=== PATIENT | male | born 1965 | race Caucasian/White ===

== ENCOUNTER → 2019-06-14 | Outpatient (CLI) | payer MEDICAID ==
[2019-06-14 08:17] LABS: HCT 45.9 % (39.0-53.0); HGB 14.7 gm/dL (13.0-17.5); MCH 30.3 pg (25.0-35.0); MCHC 32.1 g/dL (31.0-37.0); MCV 94.5 fL (80.0-100.0); Mean Platelet Volume 7.4; Platelet Count 282 k/uL (150-450); RBC 4.86 m/uL (4.30-5.90); RDW 13.1 % (11.5-15.5); WBC 5.7 k/uL (3.8-10.6)
[2019-06-14 14:24] LABS: Hemoglobin A1C 5.8 % (4.0-6.0)
[2019-06-14 16:00] LABS: African American GFR (CKD) 125.8 (60.0-200.0); Albumin 4.8 g/dL (3.80-4.90); Albumin/Globulin Ratio 2.29 (1.60-3.17); Anion Gap 7.9 mmol/L (4.00-12.00); BUN/Creat Ratio 28.57 Ratio (12.00-20.00); Calcium 9.9 mg/dL (8.7-10.3); Carbon Dioxide 28.1 mmol/L (21.6-31.8); Chol/HDL Ratio 2.44; Globulin 2.1 g/dL (1.6-3.3); LDL Cholesterol,Calculated 98.6 mg/dL (0.0-131.0); Non-African American GFR(CKD) 108.5 (60.0-200.0); Potassium 4.8 mmol/L (3.5-5.5); Total Bilirubin 1.2 mg/dL (0.2-1.2); Total Protein 6.9 g/dL (6.2-8.2); VLDL Calculation 19.4 mg/dL (5.00-40.00)
== END | disposition home or self-care (01) ==
LOC: LABWHC1 07:34
PROVIDERS: ATTEND Orthopaedic Surgery
DX: R53.83 Other fatigue (principal)
CPT/HCPCS: 36415; 80053; 80061; 82306; 83036; 84153; 84443; 85027

== ENCOUNTER → 2023-12-22 | Outpatient (CLI) | payer MEDICAID ==
--- NOTE | 2023-12-22 18:11 | MR ---
EXAMINATION TYPE: MR lumbar spine wo con DATE OF EXAM: 12/22/2023 COMPARISON: None HISTORY: 58-year-old male M54.50, Lower back pain, RLE radiculopathy, recent trauma. Hx surgery 2009 , TECHNIQUE: Multiplanar, multisequence images of the lumbar spine were acquired without IV contrast. FINDINGS: Vertebral body heights are preserved. Mildly heterogeneous marrow signal suggesting red marrow hyperplasia. No suspicious bone marrow repla cement. Conus medullaris is normal. Moderate to severe hypertrophic facet arthropathy throughout the mid and lower lumbar spine. There is straightening of the normal lumbar lordosis. Trace grade 1 retrolisthesis at both L4-L5 and L5-S1. There is moderate multilevel degenerative disc disease with desiccation, narrowing, and bulging discs , greatest in the lower lumbar spine. There is associated emphysematous Modic type I endplate change L4-L5 and L5-S1. Along with ligamentum flavum thickening at L3-L4, there is a large diffuse disc bulge contribute to s evere focal spinal canal stenosis. There is redundancy of the cauda equina nerve roots above this lev el due to the severe degree of stenosis. Disc bulges at both L1-L2 and L2-L3 contributes to mild spinal canal stenoses at these levels. On the right, changes result in severe neuroforaminal stenosis at L5-S1. Moderate L4-L5, and mild to moderate at L3-L4. On the left, changes result in severe neuroforaminal stenosis at L4-L5, moderate to severe at L5-S1, moderate at L3-L4. Benign 1.7 cm cortical cyst medial left kidney. Possible underlying left adrenal nodule measuring at least 1.2 cm, incompletely imaged. IMPRESSION: 1. Moderate to severe hypertrophic facet arthropathy mid to lower lumbar spine with superimposed mode rate degenerative disc disease. Reactive Modic type I endplate change at both L4-L5 and L5-S1. 2. Trace degenerative grade 1 retrolistheses L4-L5 and L5-S1. Straightening of the normal lumbar lord osis also noted. 3. At L3-L4, combination of diffuse disc bulge and ligamentum flavum thickening causes a severe focal spinal canal stenosis. Secondary redundancy of the cauda equina nerve roots above this level due to the degree of severe stenosis. 4. Mild narrowing of the spinal canal at L1-L2 and L2-L3. 5. Variable neuroforaminal stenoses as outlined above, severe on the right L5-S1 and severe on the le ft at L4-L5. Moderate to severe on the left at L5-S1. 6. Partially visualized possible left adrenal nodule measuring at least 1.2 cm. Consider adrenal mass protocol CT to further evaluate. Statistically representing an adrenal adenoma.
== END | disposition home or self-care (01) ==
LOC: RADMRIMAIN 12:58
PROVIDERS: ATTEND Orthopaedic Surgery
DX: M54.50 Low back pain, unspecified
CPT/HCPCS: 72148

== ENCOUNTER 2024-04-29 05:57 | Day surgery (SDC) | payer MEDICAID ==
[~2024-04-29 05:57] MED LIST: LACTATED RINGERS 1,000 ML IV SCH; LIDOCAINE 1% (10MG/ML) FOR IV START INTRADERMA PRN
[2024-04-29 06:18] VITALS: TEMP 97.2
[2024-04-29] MEDS: SODIUM CHLORIDE 0.9% 500 ML 500 ML IV ONE (06:22)
[2024-04-29] MEDS: MIDAZOLAM 2 MG/2 ML VIAL IV ONE (06:47)
[2024-04-29] MEDS ORDERED: PROPOFOL 10 MG/ML 20 ML VIAL IV ONE (07:10)
[2024-04-29] MEDS ORDERED: LIDOCAINE 1% INJ 10MG/ML (20 ML MDV) ONE (07:10)
[2024-04-29] MEDS: BENZOCAINE SPRAY 1 EACH MM ONE (07:20)
--- NOTE | 2024-04-29 07:38 | P.PCN ---
Date of Procedure: 04/29/24 Description of Procedure: Indication: Atrial fibrillation Procedure Description: After explaining the procedure to the patient, it's risk and complications, blood pressure, heart rate and O2 saturation were monitored. The throat was sprayed with Cetacaine. Patient received sedation per anesthesia department . The probe was introduced into the esophagus without difficulty. Images were obtained. Following that, the probe was removed. There was no immediate complication. Findings: Left atrial size is mildly dilated, left atrial appendage is normal. Left ventricular size and systolic function are normal. The aortic valve, mitral valve and tricuspid valve are normal. Descending thoracic aorta is normal. Contrast bubble study revealed no shunting across the interatrial septum. Doppler: Pulse wave and color Doppler were obtained, and revealed moderate mitral with mild tricuspid regurgitation and trace pulmonic regurgitation. There was no shunting across the interatrial septum. Conclusion: 1. Dilated left atrium with normal appearance of the left atrial appendage 2. Normal ventricle size and systolic function 3. Moderate mitral with mild tricuspid regurgitation 4. No shunting across the interatrial septum 5. Normal appearance of the descending thoracic aorta Cardioversion: After performing WANDA and obtaining sedated state synchronized biphasic cardioversion using 150 J was performed with orthodoxy of sinus mechanism, there was no immediate complication.
[2024-04-29] MEDS ORDERED: SODIUM CHLORIDE 0.9% 1,000 ML IV SCH (07:45)
[2024-04-29 08:16] VITALS: RESP 16
[2024-04-29 08:37] VITALS: BP 126/84; PULSE 74
[2024-04-29] MEDS ORDERED: RIVAROXABAN 10 MG TAB PO SCH (09:00)
[2024-04-29] MEDS ORDERED: METOPROLOL SUCCINATE (ER) 25 MG TAB.ER.24H PO SCH (21:00)
[2024-04-29] MEDS ORDERED: OLMESARTAN 20 MG PO SCH (21:00)
== END 2024-04-29 08:42 | disposition home or self-care (01) ==
LOC: OR 05:57
PROVIDERS: ATTEND Internal Medicine Interventional Cardiology
DX: I48.11 Longstanding persistent atrial fibrillation (principal); I36.1 Nonrheumatic tricuspid (valve) insufficiency; M19.90 Unspecified osteoarthritis, unspecified site; I10 Essential (primary) hypertension; G47.33 Obstructive sleep apnea (adult) (pediatric); Z79.01 Long term (current) use of anticoagulants; Z87.891 Personal history of nicotine dependence; Z79.899 Other long term (current) drug therapy
CPT/HCPCS: 93312; 93320; 93325; 92960; J2250; J2003; J2704

== ENCOUNTER → 2024-05-03 | Outpatient (CLI) | payer MEDICAID ==
--- NOTE | 2024-05-19 18:56 | P.PCN ---
Date of Procedure: 05/03/24 Operative Findings: Home sleep study testing Date of service is 05/03/2024 History 57-year-old male patient with limited hypersomnia and sleepiness. Nevertheless, his has noted loud snoring and witnessed apneas. In addition, the patient encountered atrial fibrillation and based on that a home sleep study was ordered to evaluate the presence of an underlying sleep breathing disorder Pertinent physical findings The patient's weight is 212 pounds with a body mass index of 28 Technical description The [employer] Apnea[employer] system was used to complete his home sleep study. This is a type III home sleep study evaluation. The total recording duration was 9 hours and 30 minutes. The study started at 10:42 PM and ended at 8:12 AM. There was a total of 8 hours and 39 minutes of flow monitoring and 8 hours and 48 minutes of oxygen saturation monitoring. Results Respiratory analysis showed a total of 28 obstructive apneas and 89 obstructive hypopneas. The resulting AHI was 13.5. Noted the patient's disease was positional and the patient had considerable worsening in the severity of sleep apnea while being in a supine body position. AHI was supine was 50.6 Oxygenation analysis The patient encountered a total of 132 oxygen desaturation episodes. The baseline pulse ox while awake was 97%. Average pulse ox during sleep was 90%. Minimum pulse ox was 69% during sleep and the patient spent approximately 1 hours and 51 minutes of the sleep time below pulse ox of 89%. This is considered to be significant nocturnal oxygen desaturations Cardiac summary Current cardiac rhythm is sinus. Average heart rate is 66. Minimum heart rate is 58 and a maximum heart rate of 84 Assessment Obstructive sleep apnea, mild in severity, positional. The baseline AHI was 13.5. Nevertheless, the patient encountered significant worsening in the severity of sleep apnea in the supine body position with an AHI of 50.6. The patient also encountered significant nocturnal oxygen desaturations as the patient spent approximately an hour and 51 minutes of the sleep time below pulse ox of 89%. The minimum pulse ox was 69% Paroxysmal atrial fibrillation Plan Recommend CPAP therapy. The patient is going to be offered an APAP machine pressures of 5/10 cm of water with appropriate mask interface. Recommend utilizing a [employer] nasal pillows or a nasal mask. Encourage weight loss. Sleep in a sideways body position as the patient's disease is positional. The patient was seen back in the office in 30 to 90 days to assess clinical response and compliancy. Will make further adjustments in his CPAP pressure based on overall clinical response and tolerability.
== END ==
LOC: 3 N SLEEP 12:11
PROVIDERS: ATTEND Internal Medicine Critical Care Medicine
DX: G47.33 Obstructive sleep apnea (adult) (pediatric) (principal); I48.0 Paroxysmal atrial fibrillation; R09.02 Hypoxemia

== ENCOUNTER → 2024-06-25 | Outpatient (CLI) | payer MEDICAID ==
--- NOTE | 2024-06-25 17:02 | MR ---
EXAMINATION TYPE: MR lumbar spine wo con DATE OF EXAM: 06/25/2024 4:42 PM COMPARISON: 05/29/2024. 12/22/2023 CLINICAL INDICATION: Male, 58 years old with history of M54.50 LOW BACK PAIN, UNSPECIFIED; PHH, Low b ack pain into RT side x6 weeks, synovial cyst L3/L4, Hx laminectomy L3/L4 04-05-24 TECHNIQUE: Multi planar, multi sequence imaging was performed utilizing: T1-weighted, T2-weighted, a nd turbo inversion recovery imaging of the lumbar spine. IV Contrast: mL (None, if empty) FINDINGS: Alignment: The lumbar vertebral bodies have preserved heights and alignment. Cord: The conus medullaris and the distal spinal cord appear unremarkable with regards to their signa l intensity and morphology. Bones/Discs: Moderate degeneration changes throughout the spine with osteophyte formation and facet j oint arthropathy. Modic endplate changes at L5-S1 L4-L5. Scattered disc desiccation. Reactive bony ed ramsey along the adjoining endplates of L5-S1 and L4-L5 are minimal. Mild edema at L3-L4 posterior eleme nts postsurgical changes at this level. Vertebral body probable vertebral body hemangioma T12-L1: No evidence of significant spinal canal stenosis or neural foraminal stenosis. L1-L2: No evidence of significant spinal canal stenosis or neural foraminal stenosis. L2-L3: No evidence of significant spinal canal stenosis or neural foraminal stenosis. L3-L4: No evidence of significant spinal canal stenosis. Facet joint arthropathy moderate bilateral n eural foraminal stenosis. L4-L5: No evidence of significant spinal canal stenosis. Facet joint arthropathy moderate to severe b ilateral neural foraminal stenosis. L5-S1: The disc has a rounded posterior morphology without significant spinal canal stenosis. Facet j oint arthropathy with underexpanded left and severe right neural foraminal stenosis. No significant spinal canal or neural foraminal stenosis in the remainder of the visualized levels. Other findings: Left renal cortical high T2 simple appearing cyst. IMPRESSION: 1. Postsurgical changes remain present at L3-L4. No definitive evidence of disc herniation or signif icant spinal canal stenosis. 2. Multilevel disc degeneration with associated osteoarthritic changes. Neural foraminal stenosis wo rse at the right L5-S1 with severe stenosis and moderate severe left and at L4-5 with moderate to sev ere neural foraminal stenosis bilaterally. [facility], , 06/25/2024 5:00 PM
== END | disposition home or self-care (01) ==
LOC: RADMRIMAIN 16:01
PROVIDERS: ATTEND Orthopaedic Surgery
DX: M47.816 Spondylosis without myelopathy or radiculopathy, lumbar region (principal); M51.360 Other intervertebral disc degeneration, lumbar region with discogenic back pain only; M48.061 Spinal stenosis, lumbar region without neurogenic claudication; M99.73 Connective tissue and disc stenosis of intervertebral foramina of lumbar region
CPT/HCPCS: 72148

== ENCOUNTER → 2024-08-03 | Outpatient (CLI) | payer MEDICAID ==
--- NOTE | 2024-08-03 14:02 | MR ---
EXAMINATION TYPE: MR lumbar spine wo con DATE OF EXAM: 08/03/2024 1:50 PM COMPARISON: 06/25/2024 CLINICAL INDICATION: Male, 58 years old with history of low back pain, Low back pain, stenosis, hx sy novial cyst. IV Contrast: cc (None if empty) TECHNIQUE: Multiplanar, multisequence images of the lumbar spine were acquired without IV contrast. Findings: Postsurgical changes of laminectomy at the L3-4 level on the left. The lumbar vertebral segments are normal in height and alignment is no fracture or subluxation. There is mild disc space narrowing, loss of signal intensity and mild to moderate circumferential dis c bulge at the L1-2, L2-3 L3-4 levels levels indicating mild degenerative disc disease.. There is mod erate degenerative disease at the L4-5 level where there is moderate disc space narrowing, circumfere ntial disc bulge and vacuum phenomena. There is moderate to marked degenerative disease at the L5-S1 level where there is a moderate to marked displaced narrowing, loss signal intensity, circumferential disc bulge, disc chronic endplate changes and spondylosis. There is a left paracentral mild to moder ate broad-based disc protrusion at the L4-5 level no other focal disc protrusions or herniations are seen. There is mild to moderate facet arthropathy at the L2-3, L3-4 and L4-5 levels. In combination with circumferential disc bulge, mild facet arthropathy and mild to moderate thickenin g of ligamentum flavum, there is a mild spinal stenosis at the L2-3 and L3-4 levels. There is multilevel neural foraminal stenosis as follows; [id number] at the L2-3 and L3-4 level s on the right, severe at the L5-S1 level on the right, mild at the L3-4 level on the left and severe at the L4-5 and L5-S1 levels on the left. IMPRESSION: 1. Mild degenerative disease from L2 through L4, moderate degenerative disease at the L4-5 level and severe degenerative disease at the L5-S1 level. 2. Mild spinal stenosis at the L2-3 and L3-4 levels. 3. Left paracentral broad-based disc protrusion at the L4-5 level. 4. Multilevel neural foraminal stenosis severe at multiple levels as described above. 5. [id number] facet arthropathy at L2-3, L3-4 and L4-5 levels. [facility], Workstation: [id number], 08/03/2024 2:00 PM
== END | disposition home or self-care (01) ==
LOC: RADMRIMAIN 13:15
PROVIDERS: ATTEND Orthopaedic Surgery
DX: M48.061 Spinal stenosis, lumbar region without neurogenic claudication (principal); M51.26 Other intervertebral disc displacement, lumbar region; M51.360 Other intervertebral disc degeneration, lumbar region with discogenic back pain only; M47.816 Spondylosis without myelopathy or radiculopathy, lumbar region
CPT/HCPCS: 72148

== ENCOUNTER 2024-11-07 11:16 | Day surgery (SDC) | payer MEDICAID ==
[2024-11-07 11:31] VITALS: TEMP 97.4
[2024-11-07] MEDS ORDERED: LACTATED RINGERS 1,000 ML IV SCH (11:34)
[2024-11-07] MEDS ORDERED: IOPAMIDOL M200 10 ML VIAL ONE (11:58)
[2024-11-07] MEDS ORDERED: methylPREDNISolone ACETATE 80 MG/ML 1 ML VIAL ONE (11:58)
[2024-11-07] MEDS: IV FLUID CONTINUATION 1,000 ML IV ONE (12:18)
--- NOTE | 2024-11-07 12:21 | P.PCN ---
Date of Procedure: 11/07/24 Procedure(s) Performed: PREOPERATIVE DIAGNOSIS: 1-Lumbar radiculopathy . 2-lumbar foraminal stenosis. 3-lumbar spondylosis with lumbar facet arthropathy without myelopathy POSTOPERATIVE DIAGNOSIS: 1-lumbar radiculopathy. 2-lumbar foraminal stenosis. 3-lumbar spondylosis with facet arthropathy without myelopathy PROCEDURE 1. Transforaminal epidural steroid injection under fluoroscopic guidance at bilateral L5-S1 level. (Fluoroscopy images stored on file in the radiology Department ) 2. Lumbar epidurogram . ANESTHESIA: Local with 1% lidocaine 3 ml. EBL: Minimal PROCEDURE INDICATION: The patient with low back pain and radiculopathy symptoms unresponsive to conservative treatment. PROCEDURE DESCRIPTION / TECHNIQUE: The patient was seen and identified in the preoperative area. Risks, benefits, complications, and alternatives were discussed with the patient. The patient agreed to proceed with the procedure and signed the consent, and vital signs were stable. Patient was taken to the OR and time out was completed. The patient was placed in the prone position on procedure table and a pillow was placed under the abdomen to reduce lumbar lordosis. The lumbosacral area was prepped and draped in the usual sterile fashion. Critical pause was taken. Vital signs were closely monitored during the procedure. Using oblique fluoroscopy, the chin of the ``José Miguel dog at Right L5-S1 level was identified, and the skin and deeper tissues just below was localized with 1% lidocaine. Subsequently, a 23-gauge 3.5-inch spinal needle was advanced under a tunneled view fluoroscopic guidance just underneath the chin of the ``José Miguel dog at the right L5-S1 Under lateral fluoroscopy, the needle was then advanced to the posterior border of the interforaminal space. After negative aspiration of CSF and blood and with no paresthesias, 1 mL Isovue 200 contrast dye was injected excellent epidurogram and outlining of the nerve root Subsequently, 3 mL of block solution containing 40 mg Depo-Medrol and 2 mL of 0.9% normal saline PF was injected. Needle was removed and the same procedure was repeated at the left L5-S1 level . At the end of the procedure, skin was cleansed, and bandages were applied. COMPLICATIONS:none DISPOSITION / PLANS: The patient was placed in a supine position and transferred to the recovery area in a stable condition for observation. There was no evidence of lower extremity motor or sensory deficit after the procedure. Patient was discharged from the recovery room after meeting discharge criteria. Home discharge instructions were given to the patient by the staff. The patient was reexamined prior to discharge.
--- NOTE | 2024-11-07 12:31 | FL ---
EXAMINATION TYPE: FL guided pain mgmt statistic DATE OF EXAM: 11/07/2024 FLUOROSCOPY transforaminal ster inj in pain services fl time 9.6 secs dap [id number] 2 images are submitted. [facility], , 11/07/2024 12:29 PM
[2024-11-07 12:36] VITALS: BP 154/108; PULSE 70; RESP 15
--- NOTE | 2024-11-07 12:42 | P.PAINCN ---
History of Present Illness - Reason for Consult Consult date: 11/07/24 - Chief Complaint Chronic back pain with radiation to the lower extremity - History of Present Illness This is 59 years old male with a history of chronic and severe low back pain with radiation to the lower extremity bilaterally and the pain more pronounced on the right side patient had history of lumbar spine surgery, which was done more than 17 years ago, patient had lumbar decompression for 5 and L5-S1, patient was relatively stable after the surgery even though he had recurrent episode of low back pain with numbness and tingling send sensation in the lower extremity, more than a year ago patient started complaining of severe symptoms, typically pain and numbness in the lower extremity bilaterally which was interfering with the quality of life and 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, patient tried conservative treatment pain medication and home exercise, failed to improve his symptoms, and in March 2024 patient underwent lumbar laminectomy surgery at L3-4 level, patient symptoms persisted after the surgery, and his postoperative course was complicated by development of synovial cyst at L3-4 level, which was treated later on with CT-guided rupture of the synovial cyst which was done in May 2024, which did not help to improve his symptoms, patient continued to have severe symptoms, which is interfering with his quality of life and 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 Past Medical History Past Medical History: Hypertension Additional Past Medical History / Comment(s): BACK PAIN History of Any Multi-Drug Resistant Organisms: None Reported Past Surgical History: Back Surgery, Orthopedic Surgery Additional Past Surgical History / Comment(s): knee arthroscopy, carpal tunnel surg. Past Anesthesia/Blood Transfusion Reactions: No Reported Reaction Smoking Status: Never smoker Medications and Allergies Home Medications Medication Instructions Recorded Confirmed Type Metoprolol Succinate [Metoprolol 50 mg PO HS 04/25/24 11/07/24 History Succinate ER] Olmesartan [Benicar] 40 mg PO HS 04/25/24 11/07/24 History Allergies Allergy/AdvReac Type Severity Reaction Status Date / Time No Known Allergies Allergy Verified 11/07/24 11:34 Physical Exam Vitals: Vital Signs Temp Pulse Resp BP Pulse Ox 11/07/24 11:27 97.4 F L 72 16 178/108 98 Intake and Output 11/06/24 11/07/24 11/07/24 22:59 06:59 14:59 Other: Weight 98.4 kg Physical Examinations : -Constitutiona : Cooperative , not in acute distress . -HEENT : nech : supple , no Lymphadenopathy , normal thyroid size . : eyes : no ptosis , no icterus, no photophobia . - neurologic : Cranial nerve II to XII intact , no focal neurological deffecit . -psychatric : alert , oriented X 3 , appropriate affect , intact judgment and insight . -Lymphatic : no Lymphadenopathy . - musculoskeltal : Lumber spine moter stegnth lower extremities ,thigh and legs 5/5 Right side , 5/5 Left side deep tendon reflexes : normal Knee Jerk , normal ankle Jerk lumber facet Loading Test =positive Right , positive Left Range of motion of the lumbar spine Flexion 30 degrees, extension 10 degrees Results Comments: MRI of the lumbar spine done 08/03/2024 showed postsurgical changes at L3-4 and multilevel lumbar facet arthropathy throughout the lumbar spine and there is moderate to severe foraminal stenosis at L2-3 L3-4 L5-S1 Assessment and Plan Plan: Assessment and plan=1-lumbar radiculopathy multilevel . 2-lumbar foraminal stenosis. 3-lumbar spondylosis with lumbar facet arthropathy. 4-previous lumbar laminectomy surgery. Patient could benefit from transforaminal epidural steroid injection, at bilateral L5-S1, Procedure risk and benefit and alternative discussed with the patient and he agreed with the proceeding Time with Patient: Less than 30 PQRS Measure Charge Sheet PQRS Narrative: Blood Pressure [Right Arm] 178/108 Pain Intensity [Back] 3 Pain Scale Used [Back] Numeric (1 - 10) Home Medications: Ambulatory Orders Metoprolol Succinate [Metoprolol Succinate ER] 50 mg PO HS 04/25/24 Olmesartan [Benicar] 40 mg PO HS 04/25/24
== END 2024-11-07 12:41 | disposition home or self-care (01) ==
LOC: ORPAIN 11:16
PROVIDERS: ATTEND Specialist
DX: M47.26 Other spondylosis with radiculopathy, lumbar region (principal); M48.061 Spinal stenosis, lumbar region without neurogenic claudication; G89.29 Other chronic pain; I10 Essential (primary) hypertension

== ENCOUNTER → 2024-11-15 | Outpatient (CLI) | payer MEDICAID ==
--- NOTE | 2024-11-15 10:13 | MR ---
EXAMINATION TYPE: MR lumbar spine wo con DATE OF EXAM: 11/15/2024 COMPARISON: 08/03/2024 CLINICAL INDICATION: Male, 59 years old with history of M54.50 LOW BACK PAIN PHH, Low back pain into [place] lower extremities, radiculopathy, numbness, hx of laminectomy 04/09 TECHNIQUE: T1 and T2 axial and sagittal images of the lumbar spine are submitted. FINDINGS: There is no abnormal signal seen within the visualized spinal cord or paraspinal soft tissu es. Straightening of the normal lumbar lordosis. Postsurgical changes L3-L4 on the left. Simple left renal cyst. Nonspecific adrenal gland nodularity most typical of benign adenoma. At L1-2 there is broad-based disc bulging with mild flattening of the thecal sac. Facet arthropathy b ut no canal stenosis. Neural foramina patent. At L2-3 there is no disc herniation or canal stenosis. Mild hypertrophy of the facet joints and ligam entum flavum. Neural foramina patent. Vertebral body hemangioma L2. At L3-4 there is broad-based disc bulging. Facet arthropathy and suspected postsurgical changes. Ther e appears to be a synovial cyst adjacent to the right facet measuring 8 mm. Mild central stenosis. Mi ld bilateral foraminal encroachment. Findings are stable. At L4-5 there is severe degenerative disc disease. Vacuum disc. Central disc protrusion greater parac entrally and laterally to the left. Small herniation not excluded. Severe left-sided foraminal encroa chment. Mild right foraminal encroachment. At L5-S1 there is severe degenerative disc disease. No Canal stenosis. Circumferential disc bulging. Discogenic marrow changes. Moderate bilateral foraminal encroachment greater on the right. Retrolisth esis L5 relative to S1 stable. Suspect a unilateral right-sided spondylolysis L5. Correlate for prior surgery change involving the posterior elements of L5. IMPRESSION: 1. Severe degenerative disc disease L4-5 and L5-S1. Moderate bilateral foraminal encroachment L5-S1. 2. Broad-based disc protrusion greater paracentrally and laterally left L4-L5 with severe degenerativ e disc disease. Severe left-sided foraminal encroachment. Broad-based disc herniation paracentrally a nd laterally to left on excluded. Findings stable. 3. Suspect a synovial cyst right facet L3-L4 measuring 8 mm. Hypertrophic changes result in mild cent ral stenosis. Correlate for prior left hemilaminectomy at this level. 4. Stable grade 1 retrolisthesis L4-L5 and L5-S1. [facility], , 11/15/2024 10:11 AM
== END | disposition home or self-care (01) ==
LOC: RADMRIMAIN 08:45
PROVIDERS: ATTEND Orthopaedic Surgery
DX: M48.061 Spinal stenosis, lumbar region without neurogenic claudication (principal); M51.16 Intervertebral disc disorders with radiculopathy, lumbar region; M43.16 Spondylolisthesis, lumbar region
CPT/HCPCS: 72148